=== PATIENT | male | born 1985 ===

== ENCOUNTER 2017-12-22 20:16 | Emergency (ER) | payer BC ==
--- NOTE | 2017-12-22 21:23 | ED ---
Influenza-Like Illness - HPI Summary HPI Summary: Pt presents with 24 horus body aches, cough wheeze, fevers - tmax 102 and sore throat no rash Pt has used cepacol, no antipyretics Pt has used MDI x 1 with improvement yesterday. Pt with remote h/o asthma. no sob, + wheeze and cough not productive + sick contacts at school - no confirmed influenza Pts medications reviewed this visit - History of Current Complaint Chief Complaint: UCGeneralIllness Time Seen by Provider: 12/22/17 20:54 Hx Obtained From: Patient Onset/Duration: Sudden Onset Severity: Moderate Associated Signs & Symptoms: Fever, Myalgia, Cough, Sore Throat, Nasal Congestion Related Hx: Possible Flu/Infectious Exposure - Allergy/Home Medications Allergies/Adverse Reactions: Allergies Allergy/AdvReac Type Severity Reaction Status Date / Time No Known Allergies Allergy Verified 12/22/17 20:50 PMH/Surg Hx/FS Hx/Imm Hx Previously Healthy: Yes Endocrine/Hematology History: Denies: Hx Diabetes, Hx Thyroid Disease Cardiovascular History: Denies: Hx Hypertension Respiratory History: Reports: Hx Asthma Denies: Hx Chronic Obstructive Pulmonary Disease (COPD) GI History: Denies: Hx Ulcer Infectious Disease History: No Infectious Disease History: Denies: Hx Hepatitis, Hx Human Immunodeficiency Virus (HIV), Traveled Outside the [place] in Last 30 Days - Family History Known Family History: Positive: None - Social History Occupation: Employed Full-time Lives: Alone Alcohol Use: Rare Substance Use Type: Reports: Marijuana Smoking Status (MU): Never Smoked Tobacco Review of Systems Positive: Fever, Chills Positive: Sore Throat, Nasal Discharge Positive: Shortness Of Breath, Cough Skin: Negative All Other Systems Reviewed And Are Negative: Yes Physical Exam Triage Information Reviewed: Yes Vital Signs On Initial Exam: Initial Vitals Temp Pulse Resp BP Pulse Ox 100 F 90 19 121/67 98 12/22/17 20:45 12/22/17 20:45 12/22/17 20:45 12/22/17 20:45 12/22/17 20:45 Vital Signs Reviewed: Yes Appearance: Positive: Well-Appearing - congested and tired appearing, Well- Nourished Skin: Positive: Warm, Skin Color Reflects Adequate Perfusion Head/Face: Positive: Normal Head/Face Inspection Eyes: Positive: Normal, EOMI, JANAE ENT: Positive: Pharynx normal, Nasal congestion, TMs normal, Uvula midline, Other - turbinated inflammed + PND mild erythema, no exudate. Negative: Sinus tenderness Neck: Positive: Supple, Nontender, No Lymphadenopathy Respiratory/Lung Sounds: Positive: Wheezes, Other - + scattered wheeze + rhonci RUL no retractions coarse cough Cardiovascular: Positive: Normal, RRR Abdomen Description: Positive: Nontender, No Organomegaly, Soft Bowel Sounds: Positive: Present Musculoskeletal: Positive: Normal Neurological: Positive: Normal, Sensory/Motor Intact, Alert, Oriented to Person Place, Time Psychiatric: Positive: Normal AVPU Assessment: Alert - [place]odia Coma Scale Best Eye Response: 4 - Spontaneous Best Motor Response: 6 - Obeys Commands Best Verbal Response: 5 - Oriented Coma Scale Total: 15 Diagnostics - Vital Signs Vital Signs Temp Pulse Resp BP Pulse Ox 12/22/17 20:45 100 F 90 19 121/67 98 - Laboratory Lab Results: Lab Results 12/22/17 Range/Units 21:08 Influenza A (Rapid) Negative (Negative) Influenza B (Rapid) Negative (Negative) Lab Statement: Any lab studies that have been ordered have been reviewed, and results considered in the medical decision making process. Re-Evaluation - Re-Evaluation First Eval Change: Improved - Lungs improved following neb pt states feels better CXR neg for infiltrate pt declined antipyretic will give prophylaxis tamiflu pt has MDI will give spacer hydarte antpyretric secretion precaution Flu Symptom Course/Dx - Course Course Of Treatment: Pt with body aches, cough, sore throat and myaglia x 1-2 days. Pt with wheeze and cough. pt with rhonchi right upper lobe. will check flu, cxr, neb. Pt declined antipyretic - Diagnoses Provider Diagnoses: Flu-like symptoms Discharge - Discharge Plan Condition: Stable Disposition: HOME Prescriptions: Oseltamivir Phosphate [Tamiflu] 75 mg PO DAILY #9 capsule Patient Education Materials: Viral Syndrome (ED) Forms: *Gen. Provider Communication, *Work Release Referrals: [facility] [place] [facility] [Outside] No Primary Care Phys,NOPCP [Primary Care Provider] - Additional Instructions: - Stay well hydrated. Drink plenty of non-alcoholic, non-caffinated beverages. - Alternate ibuprofen (Advil, Motrin) 600mg and Tylenol every 3 hours for pain or fever. Take with food. Do NOT take for more than 4-5 days. - These infections are spread by secretions - do NOT share eating or drinking utensils - clean items you share with other people such as cell phones, computer mouse, TV remote, computer tablets, etc.. Once you start to feel better, change your toothbrush and you pillowcase - you have been prescribed Tamiflu as a prophylatic treatment for flu due to your expsoures - get plenty of restful sleep - humidify the air in the room where you sleep - boil water, run a hot steam shower, vaporizer, cups of water by heat register - okay to take over the counter decongestant and cough medication - Use your inhaler with spacer - 2 puffs every 4 hours today and tomorrow, then every 4 hours as needed - contact your doctor to schedule a follow-up appointment. If you do not have a doctor, you may call the physician referral center for assistance with finding a doctor
[2017-12-22] MEDS ORDERED: Albuterol/Ipratropium NEB.SOL* Albuterol 2.5 MG/Ipratropium 0.5 MG 3 ML INH ONE (21:32)
--- NOTE | 2017-12-22 21:49 | RAD ---
Indication: Right upper lobe rhonchi with cough productive fever. 2 views of the chest including dual energy PA views demonstrates no mediastinal shift. Heart is of normal size and configuration. Lung carlos demonstrate no pleural fluid, pneumonia or pneumothorax. IMPRESSION: No active cardiopulmonary disease is noted.
[2017-12-22] MEDS ORDERED: Oseltamivir CAP* 75 MG CAP PO ONE (22:28)
== END 2017-12-22 22:45 | disposition home or self-care (01) ==
LOC: UCEAST 20:16
DX: M79.1 Myalgia (principal); R05 Cough; J02.9 Acute pharyngitis, unspecified; R50.9 Fever, unspecified; R09.81 Nasal congestion; J45.909 Unspecified asthma, uncomplicated
CPT/HCPCS: 71046; 87502; 99202; A9270-GY; G0463

== ENCOUNTER 2019-03-01 12:11 | Emergency (ER) | payer BC ==
--- NOTE | 2019-03-01 12:23 | UC ---
Lower Extremity/Ankle HPI - HPI Summary HPI Summary: 34 yo male presents with RIGHT great toe pain. He tells me that for about the last week he has noticed pain on the plantar aspect of his right great toe that is worse with weight bearing/ambulating. He denies specific injury. Has been taking ibuprofen with mild relief. Pain is better with rest and elevation. - History of Current Complaint Stated Complaint: RT FOOT INJURY Time Seen by Provider: 03/01/19 12:23 Hx Obtained From: Patient Onset/Duration: Gradual Onset Severity Initially: Moderate Severity Currently: Moderate Pain Intensity: 5 Pain Scale Used: 0-10 Numeric Aggravating Factor(s): Standing, Ambulation Alleviating Factor(s): Rest, Elevation Able to Bear Weight: Yes - Allergies/Home Medications Allergies/Adverse Reactions: Allergies Allergy/AdvReac Type Severity Reaction Status Date / Time No Known Allergies Allergy Verified 03/01/19 12:40 Home Medications: Home Medications NK [No Home Medications Reported] 03/01/19 [History Confirmed 03/01/19] PMH/Surg Hx/FS Hx/Imm Hx - Additional Past Medical History Additional PMH: None - Surgical History Surgical History: None - Family History Known Family History: Positive: None - Social History Occupation: Employed Full-time Lives: With Family Alcohol Use: Rare Substance Use Type: Marijuana Smoking Status (MU): Never Smoked Tobacco Review of Systems All Other Systems Reviewed And Are Negative: Yes Constitutional: Positive: Negative Skin: Positive: Negative Respiratory: Positive: Negative Cardiovascular: Positive: Negative Neurovascular: Positive: Negative Musculoskeletal: Positive: Other: - Right foot pain Neurological: Positive: Negative Psychological: Positive: Negative Physical Exam - Summary Physical Exam Summary: GENERAL: NAD. WDWN. No pain distress. SKIN: No rashes, sores, lesions, or open wounds. CHEST: No accessory muscle use. Breathing comfortably and in no distress. CV: Pulses intact PT and DP. Cap refill <2seconds MSK: RIGHT FOOT: Plantar aspect of great toe at inferior sesamoid bone with TTP and mild edema. Pain worse with extension of great big toe. No edema or obvious bony deformities. Negative talar tilt. No increased laxity. Negative Sterling test. NEURO: Alert. Sensations intact and symmetric B/L LEs PSYCH: Age appropriate behavior. Triage Information Reviewed: Yes Vital Signs: Vital Signs: Temp Pulse Resp BP Pulse Ox 98.4 F 66 18 131/77 100 03/01/19 12:36 03/01/19 12:36 03/01/19 12:36 03/01/19 12:36 03/01/19 12:36 Vital Signs Reviewed: Yes Lower Extremity Course/Dx - Course Course Of Treatment: XR: IMPRESSION: NO ACUTE OSSEOUS INJURY. IF SYMPTOMS PERSIST, RECOMMEND REPEAT IMAGING. Suspect fasciitis/tendinitis. Advised to continue RICE and taking ibuprofen. Discussed CAM boot, post op shoe, and shoe inserts - pt elected to try OTC shoe inserts. - Differential Dx/Diagnosis Provider Diagnosis: Right foot strain Discharge - Sign-Out/Discharge Documenting (check all that apply): Patient Departure All imaging exams completed and their final reports reviewed: Yes - Discharge Plan Condition: Stable Disposition: HOME Patient Education Materials: Plantar Fasciitis Exercises (GEN), Plantar Fasciitis (ED) Referrals: No Primary Care Phys,NOPCP [Primary Care Provider] - Marcos Limon DPM [Doctor of Podiatric Medicine] - If Needed Additional Instructions: If you develop a fever, shortness of breath, chest pain, new or worsening symptoms - please call your PCP or go to the ED. Your X-Ray today was normal. I suspect you are experiencing some tendinitis to the area that should improve with rest and continued ibuprofen/anti-inflammatory medication. 1) Continue to rest and elevate your foot. The more you are off your feet the better it should feel 2) I recommend you try a soft gel shoe insert in your shoes to reduce stress on your feet as this may improve your symptoms. - Billing Disposition and Condition Condition: STABLE Disposition: Home
[2019-03-01 12:40] VITALS: BP 131/77
== END 2019-03-01 13:10 | disposition home or self-care (01) ==
LOC: UCEAST 12:11
DX: S96.911A Strain of unspecified muscle and tendon at ankle and foot level, right foot, initial encounter (principal); X58.XXXA Exposure to other specified factors, initial encounter; Y92.9 Unspecified place or not applicable
CPT/HCPCS: 99211; G0463